=== PATIENT | female | born 1960 | race Caucasian/White ===

== ENCOUNTER 2022-01-04 14:39 | Inpatient (IN) | payer BC, MEDICAID ==
[~2022-01-04] VITALS: Ht 142.2 cm; Wt 46.7 kg
[2022-01-04] MEDS ORDERED: FAMOTIDINE 20MG/2ML VIAL IV ONE (15:00)
[2022-01-04] MEDS ORDERED: MAGNESIUM/ALUMINUM HYDROXIDE/SIMETHICONE 30ML UDC PO ONE (15:00)
[2022-01-04] MEDS ORDERED: ONDANSETRON HCL 4MG/2ML INJ IV ONE (15:00)
[2022-01-04 15:29] LABS: BASOPHILS % 0.3 % (0.0-2.0); EOSINOPHILS % 0.2 % (0.0-5.0); HEMATOCRIT. 35.1 % (36.0-48.0); HEMOGLOBIN. 11.4 g/dL (12.0-16.0); LYMPHOCYTES % 12.4 % (20.0-50.0); MEAN CORPUSCULAR HEMOGLOBIN 28.8 pg (28.0-32.0); MEAN CORPUSCULAR VOLUME 88.9 fL (81.0-99.0); MEAN PLATELET VOLUME 8.7 fl (7.4-10.4); MONOCYTES % 5.7 % (2.0-8.0); NEUTROPHILS % 81.4 % (40.0-76.0); PLATELET 258 x1000/uL (130-400); RED BLOOD CELL COUNT 3.95 mill/uL (4.2-5.4); RED CELL DISTRIBUTION WIDTH 16.7 % (11.6-14.6)
[2022-01-04 15:42] LABS: D-DIMER 1.78 mg/L FEU (<0.50); INR 1.1; PARTIAL THROMBOPLASTIN TIME 26.8 sec (23.4-31.0); PROTHROMBIN TIME 11.8 sec (9.6-11.0)
[2022-01-04 15:46] LABS: CHLORIDE 100 mEq/L (98-107)
[2022-01-04] MEDS ORDERED: METOPROLOL TARTRATE 5MG/5ML VIAL IV SCH (16:15)
[2022-01-04] MEDS ORDERED: SODIUM CHLORIDE 0.9% 500 ML IV ONE (16:30)
[2022-01-04] MEDS ORDERED: POTASSIUM CHLORIDE 20MEQ TABLET SR PO NR (17:30)
[2022-01-04] MEDS ORDERED: IOHEXOL-350 100 ML BOTTLE ONE (19:49)
[2022-01-04 20:00] VITALS: BP 116/75
[2022-01-04 20:39] VITALS: BP 116/75
[2022-01-04] MEDS ORDERED: DIPHENHYDRAMINE 50MG/ML VIAL IV PRN (21:15)
[2022-01-04] MEDS ORDERED: GUAIFENESIN 200MG/10ML SUGAR FREE UDC PO PRN (21:15)
[2022-01-04] MEDS ORDERED: ACETAMINOPHEN 325MG TABLET PO PRN (21:15)
[2022-01-04] MEDS ORDERED: MAGNESIUM/ALUMINUM HYDROXIDE/SIMETHICONE 30ML UDC PO PRN (21:15)
[2022-01-04] MEDS ORDERED: ONDANSETRON HCL 4MG/2ML INJ IV PRN (21:15)
[2022-01-04] MEDS ORDERED: CLONIDINE 0.1MG TABLET PO PRN (21:15)
[2022-01-04] MEDS ORDERED: NA PHOS,M-B/NA PHOS,DI-BA ENEMA 118ML PR PRN (21:15)
[2022-01-04] MEDS ORDERED: DOCUSATE SODIUM 100MG CAPSULE PO PRN (21:15)
[2022-01-04] MEDS ORDERED: MORPHINE SULFATE 2 MG/ML CPJ (NOT FOR IM USE) IV PRN (21:15)
[2022-01-04] MEDS ORDERED: NALOXONE HCL 0.4MG/ML VIAL IV PRN (21:30)
[2022-01-04] MEDS: BLOOD SUGAR DIAGNOSTIC STRIP TEST SCH (22:00)
[2022-01-04 22:09] LABS: CHLORIDE 107 mEq/L (98-107)
[2022-01-04] MEDS ORDERED: DEXTROSE 50% WATER 50ML SYRINGE IV PRN (23:15)
[2022-01-04] MEDS: DEXT 5%/0.45% NACL KCL 10MEQ/L 1,000 ML IV SCH (23:20)
[2022-01-04] MEDS ORDERED: APIX5TAB PO (23:40)
[2022-01-04] MEDS ORDERED: SUCR1TAB PO (23:40)
[2022-01-04] MEDS ORDERED: ACET-3292 PO (23:40)
[2022-01-04] MEDS ORDERED: HYDR-4001 PO (23:40)
[2022-01-04] MEDS ORDERED: FURO40TA5 PO (23:40)
[2022-01-05] VITALS: BP 111/72
[2022-01-05 04:00] VITALS: BP 105/55
[2022-01-05] MEDS: INSULIN LISPRO 100 UNITS/ML SUBCUT SCH ×4 (07:50→21:00)
[2022-01-05] MEDS ORDERED: ENOXAPARIN 40MG/0.4ML SYR SUBCUT SCH (09:00)
[2022-01-05] MEDS: ASPIRIN 81MG EC TABLET PO SCH ×2 (09:00→09:02)
[2022-01-05 12:00] VITALS: BP 100/53
[2022-01-05] MEDS: DEXT 5%/0.45% NACL KCL 10MEQ/L 1,000 ML IV SCH (12:00)
[2022-01-05] MEDS: BLOOD SUGAR DIAGNOSTIC STRIP TEST SCH ×3 (12:20→21:00)
[2022-01-05 16:00] VITALS: BP 94/60
[2022-01-05] MEDS: APIXABAN 5 MG TABLET PO SCH (18:02)
[2022-01-05] MEDS ORDERED: DIGOXIN 500MCG/2ML AMP IV NR (18:30)
[2022-01-05 18:43] LABS: CREATINE KINASE 364 IU/L (26-192); CREATINE KINASE MB FRACTION < 1.0 ng/mL (0.5-3.6)
[2022-01-05 18:47] LABS: T4 FREE 1.3 ng/dL (0.76-1.46)
[2022-01-05 20:00] VITALS: BP 103/59
[2022-01-06] VITALS: BP 100/60
[2022-01-06 04:00] VITALS: BP 98/60
[2022-01-06] MEDS: BLOOD SUGAR DIAGNOSTIC STRIP TEST SCH ×4 (06:03→21:16)
[2022-01-06] MEDS: INSULIN LISPRO 100 UNITS/ML SUBCUT SCH ×4 (06:03→21:00)
[2022-01-06] MEDS: DEXT 5%/0.45% NACL KCL 10MEQ/L 1,000 ML IV SCH ×2 (06:05→13:15)
[2022-01-06 07:56] LABS: CREATINE KINASE MB FRACTION 1.5 ng/mL (0.5-3.6)
[2022-01-06 08:00] VITALS: BP 100/58
[2022-01-06] MEDS: APIXABAN 5 MG TABLET PO SCH ×2 (10:25→17:21)
[2022-01-06] MEDS: AMIODARONE HCL 200 MG TABLET PO SCH (10:25)
[2022-01-06 16:00] VITALS: BP 111/65
[2022-01-06 20:00] VITALS: BP 100/59
[2022-01-07] VITALS: BP 102/58
[2022-01-07 04:50] VITALS: BP 92/55
[2022-01-07] MEDS: BLOOD SUGAR DIAGNOSTIC STRIP TEST SCH ×4 (06:22→20:51)
[2022-01-07] MEDS: INSULIN LISPRO 100 UNITS/ML SUBCUT SCH ×4 (07:50→20:51)
[2022-01-07 08:23] VITALS: BP 107/65
[2022-01-07] MEDS ORDERED: DIGOXIN 500MCG/2ML AMP IV NR (09:00)
[2022-01-07] MEDS: AMIODARONE HCL 200 MG TABLET PO SCH (09:15)
[2022-01-07] MEDS: APIXABAN 5 MG TABLET PO SCH ×2 (09:15→16:50)
[2022-01-07] MEDS ORDERED: IOHEXOL-300 100 ML BOTTLE ONE (10:32)
[2022-01-07 12:03] VITALS: BP 107/62
[2022-01-07 12:55] LABS: HEMATOCRIT 33.3 % (36.0-48.0); HEMOGLOBIN 10.7 g/dL (12.0-16.0); MEAN CORPUSCULAR HEMOGLOBIN 28.6 pg (28.0-32.0); MEAN CORPUSCULAR VOLUME 88.7 fL (81.0-99.0); PLATELET 216 x1000/uL (130-400); RED BLOOD CELL COUNT 3.75 mill/uL (4.2-5.4); RED CELL DISTRIBUTION WIDTH 16.3 % (11.6-14.6)
[2022-01-07 13:11] LABS: CHLORIDE 105 mEq/L (98-107)
[2022-01-07] MEDS: DEXT 5%/0.45% NACL KCL 10MEQ/L 1,000 ML IV SCH (15:49)
[2022-01-07 16:30] VITALS: BP 109/67
[2022-01-07] MEDS ORDERED: PROT40 PO (18:09)
[2022-01-07] MEDS ORDERED: METO100T16 PO (18:09)
[2022-01-07] MEDS ORDERED: FURO-151 PO (18:09)
[2022-01-07] MEDS ORDERED: ACET-2708 PO (18:09)
[2022-01-07 20:00] VITALS: BP 113/69
[2022-01-08] VITALS: BP 105/69
[2022-01-08 05:15] VITALS: BP 103/63
[2022-01-08] MEDS: HYDROCODONE/ACETAMINOPHEN 5/325MG TABLET PO PRN (05:22)
[2022-01-08] MEDS: BLOOD SUGAR DIAGNOSTIC STRIP TEST SCH ×4 (06:48→21:26)
[2022-01-08 06:56] LABS: BASOPHILS % 0.5 % (0.0-2.0); EOSINOPHILS % 5.7 % (0.0-5.0); HEMATOCRIT. 32.2 % (36.0-48.0); HEMOGLOBIN. 10.7 g/dL (12.0-16.0); LYMPHOCYTES % 19.7 % (20.0-50.0); MEAN CORPUSCULAR HEMOGLOBIN 29.1 pg (28.0-32.0); MEAN CORPUSCULAR VOLUME 87.9 fL (81.0-99.0); MEAN PLATELET VOLUME 8.3 fl (7.4-10.4); MONOCYTES % 8.7 % (2.0-8.0); NEUTROPHILS % 65.4 % (40.0-76.0); PLATELET 231 x1000/uL (130-400); RED BLOOD CELL COUNT 3.66 mill/uL (4.2-5.4); RED CELL DISTRIBUTION WIDTH 16.3 % (11.6-14.6)
[2022-01-08 07:30] LABS: CHLORIDE 108 mEq/L (98-107)
[2022-01-08] MEDS: INSULIN LISPRO 100 UNITS/ML SUBCUT SCH ×4 (07:39→21:00)
[2022-01-08 07:58] VITALS: BP 108/68
[2022-01-08] MEDS: APIXABAN 5 MG TABLET PO SCH ×2 (08:51→17:25)
[2022-01-08] MEDS: AMIODARONE HCL 200 MG TABLET PO SCH (08:51)
[2022-01-08 12:15] VITALS: BP 115/70
[2022-01-08] MEDS ORDERED: DIGOXIN 500MCG/2ML AMP IV NR (13:00)
[2022-01-08 15:24] VITALS: BP 118/71
[2022-01-08] MEDS: DEXT 5%/0.45% NACL KCL 10MEQ/L 1,000 ML IV SCH (17:36)
[2022-01-08 20:00] VITALS: BP 107/60
[2022-01-09] VITALS: BP 112/74
[2022-01-09] MEDS: HYDROCODONE/ACETAMINOPHEN 5/325MG TABLET PO PRN ×2 (00:08→08:51)
[2022-01-09] MEDS: DILTIAZEM HCL 30MG TABLET PO SCH ×3 (02:31→16:29)
[2022-01-09] MEDS ORDERED: DILTIAZEM HCL 30MG TABLET PO SCH (06:00)
[2022-01-09 06:24] VITALS: BP 104/44
[2022-01-09] MEDS: BLOOD SUGAR DIAGNOSTIC STRIP TEST SCH ×2 (06:28→12:20)
[2022-01-09] MEDS: DEXT 5%/0.45% NACL KCL 10MEQ/L 1,000 ML IV SCH (06:34)
[2022-01-09] MEDS: INSULIN LISPRO 100 UNITS/ML SUBCUT SCH ×2 (07:50→12:50)
[2022-01-09 08:00] VITALS: BP 141/59
[2022-01-09] MEDS: APIXABAN 5 MG TABLET PO SCH (08:30)
[2022-01-09] MEDS ORDERED: AMIODARONE HCL 200 MG TABLET PO SCH (09:00)
[2022-01-09 12:00] VITALS: BP 121/75
[2022-01-09 13:30] VITALS: BP 122/61
[2022-01-09 16:00] VITALS: BP 128/73
== END 2022-01-09 16:50 | disposition home or self-care (01) | DRG 641 ==
LOC: EDBD 15:27 → ER 15:27 → 6WST 17:29 → ENRESERV 18:04
PROVIDERS: ADMIT Internal Medicine; ATTEND Internal Medicine
PROC: 4B02XSZ Measurement of Cardiac Pacemaker, External Approach (ICD-10-PCS; 2022-01-06)
PROC: 4A10X4Z Monitoring of Central Nervous Electrical Activity, External Approach (ICD-10-PCS; principal; 2022-01-08)
DX: E87.6 Hypokalemia (principal); I42.9 Cardiomyopathy, unspecified; I47.1 Supraventricular tachycardia; I48.4 Atypical atrial flutter; R55 Syncope and collapse; E86.0 Dehydration; E11.9 Type 2 diabetes mellitus without complications; I48.91 Unspecified atrial fibrillation; I27.20 Pulmonary hypertension, unspecified; I11.0 Hypertensive heart disease with heart failure; Z20.822 Contact with and (suspected) exposure to COVID-19; I50.9 Heart failure, unspecified; I25.2 Old myocardial infarction; Z79.01 Long term (current) use of anticoagulants; Z79.899 Other long term (current) drug therapy; Z95.0 Presence of cardiac pacemaker; Z95.2 Presence of prosthetic heart valve; S82.401A Unspecified fracture of shaft of right fibula, initial encounter for closed fracture
CPT/HCPCS: 36415; 70460; 71045; 71275; 73502; 73552; 73560; 73590; 73610; 73620; 80048; 80053; 80061; 82550; 82553; 82962; 83036; 83880; 84439; 84443; 84484; 85025; 85027; 85379; 87426; 93005; 93306; 95816; 97161; 97165; 97166; 97530; 99285; C9803; J1160; J1650; J2405; J3490; J7040; Q9967